=== PATIENT | male | born 1960 | race Caucasian/White ===

== ENCOUNTER → 2022-10-21 | Outpatient (CLI) | payer OTHER ==
[~2022-10-21] MED LIST: ALBU90OI INH; ALBU90OI61 INH; AZIT500 PO; PRED20 PO
[2022-10-21 12:54] LABS: Microalb/Creat Ratio UR, Rand 72.105 mg/g (0.000-30.000); Microalbumin, Random Urine 41.1 mg/L (0.000-20.000)
== END | disposition home or self-care (01) ==
LOC: LAB SHORT 07:45
PROVIDERS: Family Medicine
DX: I10 Essential (primary) hypertension (principal)
CPT/HCPCS: 82043; 82570